=== PATIENT | female | born 1995 | race Caucasian/White ===

== ENCOUNTER 2018-01-04 22:50 | Emergency (ER) | payer BC ==
--- NOTE | 2018-01-04 23:51 | EDPHY ---
H & P Time Seen by Provider: 01/04/18 23:00 HPI/ROS: CHIEF COMPLAINT: Left low back pain HISTORY OF PRESENT ILLNESS: 22-year-old female presents to the emergency department left low back pain that just began this afternoon. She denies any known trauma or injury however she does work as a server manager in a restaurant. She has pain especially with movement. She was feeling slightly nauseous. She has had urinary tract infections in the past, however she does not feel that the symptoms are related to that. She has also had pyelonephritis when she was younger but has not had kidney infections as an adult. No chest pain or difficulty breathing. No abdominal pain. No radiation of pain in her lower extremities. She took Tylenol earlier this evening. REVIEW OF SYSTEMS: Constitutional: No fever, no chills. Eyes: No double or blurry vision. ENT: No sore throat. Respiratory: No cough, no shortness of breath. Cardiac: No chest pain. Gastrointestinal: No abdominal pain, vomiting or diarrhea. Genitourinary: No dysuria. Musculoskeletal: Left low back pain as above. No neck pain. Skin: No rashes. Neurological: No headache. Past Medical/Surgical History: Urinary tract infections Social History: Single Smoking Status: Current every day smoker Physical Exam: General Appearance: Alert, no distress. Afebrile and in no apparent distress. Eyes: Pupils equal and round. Extraocular motions are all intact. ENT: Mouth: Mucous membranes moist. Respiratory: No wheezing, rhonchi, or rales, lungs are clear to auscultation. Cardiovascular: Regular rate and rhythm. Gastrointestinal: Abdomen is soft and nontender, no masses, no rebound or guarding, bowel sounds normal. No CVA tenderness bilaterally. Neurological: Alert and oriented x 3, cranial nerves II through XII grossly intact Skin: Warm and dry, no rashes. Musculoskeletal: Nontender to palpate along the cervical, thoracic or lumbar spine. Neck is supple. Laterally bending to her left especially and twisting to her left causes pain in the left low back. Straight leg raise is negative bilaterally. Extremities: Full range of motion and no peripheral edema. Psychiatric: Patient is oriented X 3, there is no agitation. Constitutional: Initial Vital Signs Temperature (C) 36.8 C 01/04/18 22:52 Heart Rate 77 01/04/18 22:52 Respiratory Rate 18 01/04/18 22:52 Blood Pressure 125/78 H 01/04/18 22:52 O2 Sat (%) 98 01/04/18 22:52 O2 Delivery Mode Room Air Allergies/Adverse Reactions: No Known Allergies Allergy (Unverified 01/04/18 22:53) Home Medications: Medication Instructions Recorded Bcp 01/04/18 Medical Decision Making ED Course/Re-evaluation: 22-year-old female presents to the emergency department with left low back pain. Her pain is clearly made worse with laterally bending to her left and twisting to her left. I feel that this is likely more musculoskeletal in nature. Her urinalysis does not reveal any obvious signs of infection. 2+ mucus is noted. Encouraged anti-inflammatories and told her to return to the emergency department she developed any worsening symptoms, shortness of breath, or if she felt worse in any way. Differential Diagnosis: Back pain including but not limited to muscular pain, herniated disc, spine fracture, intra-abdominal causes and urinary tract infection. - Data Points Laboratory Results: 01/04/18 01/04/18 Unknown 23:15 Urine Color YELLOW Urine Appearance HAZY Urine pH 5.0 (5.0-7.5) Ur Specific [place] 1.029 (1.002-1.030) Urine Protein NEGATIVE (NEGATIVE) Urine Ketones NEGATIVE (NEGATIVE) Urine Blood 2+ H (NEGATIVE) Urine Nitrate NEGATIVE (NEGATIVE) Urine Bilirubin NEGATIVE (NEGATIVE) Urine Urobilinogen NEGATIVE EU EU (0.2-1.0) Ur Leukocyte Esterase NEGATIVE (NEGATIVE) Urine RBC 1-3 /hpf /hpf (0-3) Urine WBC 3-5 /hpf H /hpf (0-3) Ur Epithelial Cells TRACE /lpf /lpf (NONE-1+) Urine Mucus 2+ /lpf H /lpf (NONE-1+) Urine Glucose NEGATIVE (NEGATIVE) Urine Test NEGATIVE Departure - Departure Disposition: Home, Routine, Self-Care Clinical Impression: Left low back pain Qualifiers: Chronicity: acute Sciatica presence: without sciatica Qualified Code(s): M54.5 - Low back pain Condition: Good Instructions: Low Back Strain (ED) Additional Instructions: Ibuprofen 600 mg every 8 hr as needed for pain. Warm compresses as discussed. Avoid heavy lifting or any activity that causes pain. Return to the emergency department if you develop increasing pain or any other concerns. Referrals: Lima Razo MD [Medical Doctor] - 2-3 days, if not improved (Primary care provider in [place])
[2018-01-05 00:12] VITALS: BP 118/70
== END 2018-01-05 00:08 | disposition home or self-care (01) ==
DX: M54.5 Low back pain (principal); F17.200 Nicotine dependence, unspecified, uncomplicated

== ENCOUNTER 2018-08-21 08:31 | Emergency (ER) | payer BC, OTHER ==
[2018-08-21] MEDS ORDERED: NS 1,000 ML IV ONE (08:59)
[2018-08-21] MEDS ORDERED: ONDANSETRON 4 MG/2 ML VIAL IVP ONE (08:59)
[2018-08-21] MEDS ORDERED: KETOROLAC 30 MG/1 ML SDV IVP ONE (08:59)
[2018-08-21] MEDS ORDERED: PROMETHAZINE HCL 25 MG/ML INJ IVP ONE (08:59)
--- NOTE | 2018-08-21 08:59 | EDPHY ---
H & P Stated Complaint: n/v/d Time Seen by Provider: 08/21/18 08:54 HPI/ROS: HPI: This is a 23-year-old female who presents with Chief Complaint: Nausea, vomiting, diarrhea Location: GI Quality: Nausea, vomiting, diarrhea Duration: Since 6:00 a.m. This morning approximately 2-3 hours Signs and Symptoms: no fever, + nausea, + vomiting, no hematemesis, no blood in stool, no abdominal bloating,+ diarrhea, no back pain, no urinary symptoms, no vaginal bleeding/discharge, no indigestion, no chest pain, no shortness of breath Timing: Rapid onset, acute, intermittent episodes Severity: Moderate Context: Patient is a student at [employer], works at [employer] with sudden onset this morning around 6:00 a.m., approximately 2-3 hours prior to arrival, with nausea, vomiting now just dry heaves, 2 loose stools. Another employee from [employer] is in the emergency room with similar symptoms. Patient reports that she [facility] She denies any actual abdominal pain only complains of abdominal cramping. No recent antibiotic use or foreign travel. Modifying Factors: None Comment: ROS: A comprehensive 10 system review of systems is otherwise negative aside from elements mentioned in the history of present illness. MEDICAL/SURGICAL/SOCIAL HISTORY: Medical history: Generally healthy. Does not take any regular medications. Surgical history: Denies Social history: Former smoker. Family history noncontributory. CONSTITUTIONAL: Actively retching young adult white female who appears nontoxic , awake and alert, no obvious distress HEENT: Atraumatic and normocephalic, PERRL, EOMI. Nares patent; no rhinorrhea; no nasal mucosal edema. Tympanic membranes clear. Oropharynx clear, no exudate and moist pink mucosa. Airway patent. No lymphadenopathy. No meningismus. Cardiovascular: Normal S1/S2, regular rate, regular rhythm, without murmur rub or gallop. PULMONARY/CHEST: Symmetrical and nontender. Clear to auscultation bilaterally. Good air movement. No accessory muscle usage. Tachypnea. ABDOMEN: Soft, nondistended, nontender, no rebound, no guarding, no peritoneal signs, no masses or organomegaly. No CVAT. EXTREMITIES: 2/2 pulses, strength 5/5, no deformities, no clubbing, no cyanosis or edema. NEUROLOGICAL: no focal neuro deficits. GCS 15. SKIN: Warm and dry, no erythema. Tattoo on left wrist noted. no rash. Good capillary refill. Source: Patient Exam Limitations: No limitations (The) - Personal History Current Tetanus/Diphtheria Vaccine: Unsure Current Tetanus Diphtheria and Acellular Pertussis (TDAP): Unsure - Medical/Surgical History Hx Asthma: No Hx Chronic Respiratory Disease: No Hx Diabetes: No Hx Cardiac Disease: No Hx Renal Disease: No Hx Cirrhosis: No Hx Alcoholism: No Hx HIV/AIDS: No Hx Splenectomy or Spleen Trauma: No Other PMH: denies - Social History Smoking Status: Former smoker Constitutional: Initial Vital Signs Temperature (C) 36.6 C 08/21/18 08:38 Heart Rate 94 08/21/18 08:38 Respiratory Rate 24 H 08/21/18 08:38 Blood Pressure 125/87 H 08/21/18 08:38 O2 Sat (%) 100 08/21/18 08:38 O2 Delivery Mode Room Air Allergies/Adverse Reactions: No Known Allergies Allergy (Unverified 08/21/18 08:38) Home Medications: Medication Instructions Recorded Ondansetron Odt [Zofran Odt 4 mg 4 mg PO Q4 PRN #12 tab 08/21/18 (*)] Promethazine HCl 25 mg PO Q6 PRN #10 tablet 08/21/18 Medical Decision Making ED Course/Re-evaluation: Vital signs reviewed. Afebrile and tachypneic likely due to actively retching. IV access, laboratory studies ordered Given 2 L normal saline, IV Zofran, IV promethazine 12.5 mg, IV Toradol 30 mg 0930: Labs reviewed. No signs of leukocytosis/anemia/platelet dysfunction/ROSANA/ elevated LFTs/electrolyte imbalance/pancreatitis. Patient serum HCG qualitative is positive which is likely due to her recent . Serum HCG quantitative ordered; 204; very small value which would be residual from . 1000: Reassessed patient who reports moderate relief of symptoms. No longer vomiting. Requesting work notice to return to work for shift this evening at 5: 00 p.m. Patient has since talked to several employees from last night and 6 colleagues report similar symptoms. This patient was seen under the supervision of my secondary supervising physician. I evaluated care for this patient attending. Discussed this patient with Dr. De Jesus. Differential Diagnosis: Differential diagnosis includes but is not limited to gastroenteritis. - Data Points Laboratory Results: Laboratory Results 08/21/18 08:48 08/21/18 08:48 08/21/18 08/21/18 08/21/18 08:48 08:48 08:48 WBC RBC Hgb Hct MCV MCH MCHC RDW Plt Count MPV Neut % (Auto) Lymph % (Auto) Thomas % (Auto) Eos % (Auto) Baso % (Auto) Nucleat RBC Rel Count Absolute Neuts (auto) Absolute Lymphs (auto) Absolute Monos (auto) Absolute Eos (auto) Absolute Basos (auto) Absolute Nucleated RBC Immature Gran % Immature Gran # Sodium 141 mEq/L mEq/L (135-145) Potassium 3.6 mEq/L mEq/L (3.5-5.2) Chloride 107 mEq/L mEq/L (97-110) Carbon Dioxide 22 mEq/l mEq/l (22-31) Anion Gap 12 mEq/L mEq/L (6-14) BUN 16 mg/dL mg/dL (7-23) Creatinine 0.8 mg/dL mg/dL (0.6-1.0) Estimated GFR > 60 Glucose 110 mg/dL H mg/dL (70-100) Calcium 9.7 mg/dL mg/dL (8.5-10.4) Total Bilirubin 0.9 mg/dL mg/dL (0.1-1.4) Conjugated Bilirubin 0.3 mg/dL mg/dL (0.0-0.5) Unconjugated Bilirubin 0.6 mg/dL mg/dL (0.0-1.1) AST 26 IU/L IU/L (14-46) ALT 24 IU/L IU/L (9-52) Alkaline Phosphatase 76 IU/L IU/L (38-126) Total Protein 7.9 g/dL g/dL (6.3-8.2) Albumin 4.9 g/dL g/dL (3.5-5.0) Lipase 127 IU/L IU/L (23-300) Beta HCG, Qual POSITIVE Beta HCG, Quant 204.06 mIU/mL H mIU/mL (0.00-4.83) 08/21/18 08:48 WBC 9.50 10^3/uL 10^3/uL (3.80-9.50) RBC 4.55 10^6/uL 10^6/uL (4.18-5.33) Hgb 14.2 g/dL g/dL (12.6-16.3) Hct 41.5 % % (38.0-47.0) MCV 91.2 fL fL (81.5-99.8) MCH 31.2 pg pg (27.9-34.1) MCHC 34.2 g/dL g/dL (32.4-36.7) RDW 12.4 % % (11.5-15.2) Plt Count 228 10^3/uL 10^3/uL (150-400) MPV 10.5 fL fL (8.7-11.7) Neut % (Auto) 83.1 % H % (39.3-74.2) Lymph % (Auto) 9.7 % L % (15.0-45.0) Thomas % (Auto) 5.8 % % (4.5-13.0) Eos % (Auto) 0.9 % % (0.6-7.6) Baso % (Auto) 0.4 % % (0.3-1.7) Nucleat RBC Rel Count 0.0 % % (0.0-0.2) Absolute Neuts (auto) 7.89 10^3/uL H 10^3/uL (1.70-6.50) Absolute Lymphs (auto) 0.92 10^3/uL L 10^3/uL (1.00-3.00) Absolute Monos (auto) 0.55 10^3/uL 10^3/uL (0.30-0.80) Absolute Eos (auto) 0.09 10^3/uL 10^3/uL (0.03-0.40) Absolute Basos (auto) 0.04 10^3/uL 10^3/uL (0.02-0.10) Absolute Nucleated RBC 0.00 10^3/uL 10^3/uL (0-0.01) Immature Gran % 0.1 % % (0.0-1.1) Immature Gran # 0.01 10^3/uL 10^3/uL (0.00-0.10) Sodium Potassium Chloride Carbon Dioxide Anion Gap BUN Creatinine Estimated GFR Glucose Calcium Total Bilirubin Conjugated Bilirubin Unconjugated Bilirubin AST ALT Alkaline Phosphatase Total Protein Albumin Lipase Beta HCG, Qual Beta HCG, Quant Medications Given: Discontinued Medications Sodium Chloride (Ns) 1,000 mls @ 0 mls/hr IV EDNOW ONE; Wide Open PRN Reason: Protocol Stop: 08/21/18 09:00 Last Admin: 08/21/18 09:21 Dose: 1,000 mls Sodium Chloride (Ns) 1,000 mls @ 0 mls/hr IV EDNOW ONE; Wide Open PRN Reason: Protocol Stop: 08/21/18 09:00 Last Admin: 08/21/18 09:23 Dose: Not Given Ketorolac Tromethamine (Toradol) 30 mg IVP EDNOW ONE Stop: 08/21/18 09:00 Last Admin: 08/21/18 09:23 Dose: 30 mg Ondansetron HCl (Zofran) 4 mg IVP EDNOW ONE Stop: 08/21/18 09:00 Last Admin: 08/21/18 09:19 Dose: 4 mg Promethazine HCl (Phenergan) 12.5 mg IVP EDNOW ONE Stop: 08/21/18 09:00 Last Admin: 08/21/18 09:22 Dose: 12.5 mg Departure - Departure Disposition: Home, Routine, Self-Care Clinical Impression: Gastroenteritis Condition: Good Instructions: Promethazine (By mouth), Ondansetron (By mouth), Gastroenteritis (ED) Additional Instructions: Consume a minimum of 8-10 glasses of water or electrolyte fluid replacement drinks that include Gatorade, Powerade, Pedialyte. Eat a bland diet for the next 48 hours and then slowly advance as tolerated. Take Zofran 1 tab every 4 hours as needed for nausea, vomiting. Take Phenergan 1 tab every 6 hr as needed for nausea, vomiting not relieved by Zofran. Return to the Emergency Room if symptoms do not resolve in the next 72 hours, you spike a fever > 102 F, or experience intractable abdominal pain/nausea/ vomiting. Referrals: [facility],. [Clinic] - As per Instructions Stand Alone Forms: Work Excuse Prescriptions: Ondansetron Odt [Zofran Odt 4 mg (*)] 4 mg PO Q4 PRN #12 tab PRN Reason: Nausea/Vomiting, Use 1st Promethazine HCl 25 mg PO Q6 PRN #10 tablet PRN Reason: Nausea/Vomiting, Use 2nd
[2018-08-21 09:09] LABS: PLATELET COUNT 228 10^3/uL (150-400)
[2018-08-21] MEDS: NS 1,000 ML IV ONE ×2 (09:20→09:21)
[2018-08-21 10:39] VITALS: BP 122/70
== END 2018-08-21 10:39 | disposition home or self-care (01) ==
DX: K52.9 Noninfective gastroenteritis and colitis, unspecified (principal)
CPT/HCPCS: 96374; J1885; J2405; J2550

== ENCOUNTER 2019-01-04 19:18 | Emergency (ER) | payer OTHER | END 2019-01-04 20:11 | disposition home or self-care (01) ==